=== PATIENT | female | born 2000 | race Two or more races ===

== ENCOUNTER 2022-02-07 08:14 | Emergency (ER) | payer OTHER ==
[2022-02-07 08:37] VITALS: BP 102/65; PULSE 84; RESP 20; TEMP 98.7; BMI 21.4
[2022-02-07] MEDS ORDERED: IBUPROFEN 600 MG TABLET (FP) PO ONE ×2 (09:40→09:44)
== END 2022-02-07 11:59 | disposition home or self-care (01) ==
LOC: JER 08:14
DX: N61.1 Abscess of the breast and nipple (principal)
CPT/HCPCS: 76642-TC-RT; 99284-25

== ENCOUNTER 2022-02-17 15:00 | Emergency (ER) | payer OTHER ==
[2022-02-17 15:25] VITALS: RESP 18; BMI 21.7
[2022-02-17] MEDS ORDERED: KETOROLAC TROMETHAMINE 30 MG/1 ML VIAL IVPUSH ONE (16:19)
[2022-02-17] MEDS ORDERED: SODIUM CHLORIDE 0.9% 500 ML INFUS.BAG IV ONE (16:19)
[2022-02-17] MEDS ORDERED: METOCLOPRAMIDE HCL INJECTION 10 MG/2 ML VIAL IVPUSH ONE (16:19)
[2022-02-17] MEDS ORDERED: KETOROLAC TROMETHAMINE 30 MG/1 ML VIAL ONE (16:31)
[2022-02-17] MEDS ORDERED: METOCLOPRAMIDE HCL INJECTION 10 MG/2 ML VIAL ONE (16:31)
[2022-02-17 17:03] LABS: BASO % 0.1 % (0-2.0); EOS % 2.7 % (0-4.5); HEMOGLOBIN 12.1 GM/dL (10.7-15.3); LYMPH % 14.1 % (8-40); MCH 25.5 pg (25.7-33.7); MCHC 33.6 g/dl (32.0-36.0); MEAN CELL VOLUME 75.9 fl (80-96); MONO % 4.8 % (3.8-10.2); NEUT % 78.3 % (42.8-82.8); PLATELET COUNT 271 10^3/uL (134-434); RBC 4.75 M/mm3 (3.60-5.2); RDW 16.9 % (11.6-15.6); WHITE BLOOD COUNT 4.6 K/mm3 (4.0-10.0)
[2022-02-17 17:13] LABS: THROAT:GRP A STREP NOT DETECTED (NOTDETECTED)
[2022-02-17 17:15] VITALS: BP 100/47; PULSE 95; TEMP 101.3
[2022-02-17 17:46] LABS: ALBUMIN 3.9 g/dl (3.4-5.0); BLOOD UREA NITROGEN 8.2 mg/dL (7-18); CALCIUM 8.8 mg/dL (8.5-10.1)
[2022-02-17 17:49] LABS: CREATININE 0.7 mg/dL (0.55-1.3)
[2022-02-17 17:51] LABS: BILIRUBIN,TOTAL 0.2 mg/dL (0.2-1); TOT PROT 7.5 g/dl (6.4-8.2)
== END 2022-02-17 18:38 | disposition home or self-care (01) ==
LOC: JER 15:00
DX: T78.40XA Allergy, unspecified, initial encounter (principal); B34.9 Viral infection, unspecified
CPT/HCPCS: 0241U-QW; 36415; 80053; 85025; 87651; 99283-25

== ENCOUNTER 2022-03-20 21:42 | Emergency (ER) | payer OTHER ==
[2022-03-20 21:50] VITALS: BP 116/80; PULSE 86; RESP 18; TEMP 98.1; BMI 20.9
== END 2022-03-20 23:22 | disposition home or self-care (01) ==
LOC: JERFT 21:42
DX: T25.232A Burn of second degree of left toe(s) (nail), initial encounter (principal); X11.8XXA Contact with other hot tap-water, initial encounter
CPT/HCPCS: 99282-25

== ENCOUNTER 2022-05-31 23:11 | Emergency (ER) | payer OTHER ==
[2022-05-31 23:19] VITALS: BP 113/59; PULSE 75; RESP 18; TEMP 98; BMI 20.9
[2022-05-31] MEDS ORDERED: KETOROLAC TROMETHAMINE 30 MG/1 ML VIAL IM ONE (23:50)
[2022-05-31] MEDS ORDERED: KETOROLAC TROMETHAMINE 30 MG/1 ML VIAL ONE (23:54)
[2022-06-01] MEDS ORDERED: IBUPROFEN 600 MG TABLET (FP) PO ONE (00:01)
== END 2022-06-01 01:40 | disposition home or self-care (01) ==
LOC: JER 23:11
PROC: 3E0233Z Introduction of Anti-inflammatory into Muscle, Percutaneous Approach (ICD-10-PCS; principal; 2022-05-31)
DX: N60.11 Diffuse cystic mastopathy of right breast (principal)
CPT/HCPCS: 76641-TC-RT; 99284-25

== ENCOUNTER 2022-06-02 12:46 | Emergency (ER) | payer OTHER ==
[2022-06-02 12:56] VITALS: BP 106/72; PULSE 82; RESP 18; TEMP 98.9; BMI 20.9
[2022-06-02] MEDS ORDERED: IBUPROFEN 400 MG TABLET (FP) PO ONE ×2 (13:54→13:59)
== END 2022-06-02 14:52 | disposition home or self-care (01) ==
LOC: JER 12:46 → JERFT 12:46
DX: N64.4 Mastodynia (principal)
CPT/HCPCS: 99283-25

== ENCOUNTER 2022-08-06 04:01 | Day surgery (SDC) | payer OTHER ==
[2022-08-01 18:08] VITALS: BMI 23.2
[2022-08-06] MEDS ORDERED: LIDOCAINE HCL 1%, 10 MG/ML (20ML VIAL) ONE (11:17)
[2022-08-06] MEDS ORDERED: PROPOFOL 20 ML ONE (15:51)
[2022-08-06] MEDS ORDERED: MIDAZOLAM HCL 2 MG/2 ML SINGLE DOSE VIAL ONE (15:51)
[2022-08-06] MEDS ORDERED: ceFAZolin SODIUM 1 GM VIAL IVPB ONE (16:08)
[2022-08-06] MEDS ORDERED: BACITRACIN ZINC 15 GM TUBE TOPICAL OINTMENT ONE (16:17)
[2022-08-06] MEDS ORDERED: oxyCODONE HCL 5 MG TABLET PO PRN (16:54)
[2022-08-06] MEDS ORDERED: ONDANSETRON 4 MG/2 ML VIAL IVPUSH PRN (16:54)
[2022-08-06 17:35] VITALS: RESP 16
[2022-08-06 18:27] VITALS: BP 114/54; PULSE 83; TEMP 97.1
== END 2022-08-06 18:25 | disposition home or self-care (01) ==
LOC: JASU-SURG 04:01
PROVIDERS: ATTEND Surgery
PROC: 0HBW0ZX Excision of Right Nipple, Open Approach, Diagnostic (ICD-10-PCS; principal; 2022-08-06 12:00)
DX: D24.1 Benign neoplasm of right breast (principal)
CPT/HCPCS: 81025; 88305-TC; 94760